=== PATIENT | male | born 1985 | race African-American/Black ===

== ENCOUNTER 2017-10-20 17:06 | Emergency (ER) | payer OTHER ==
[~2017-10-20] VITALS: Ht 175.3 cm; Wt 127.3 kg
[2017-10-20 17:09] VITALS: BP 139/85
[2017-10-20] MEDS ORDERED: MetroNIDAZOLE 500 MG TABLET PO ONE (18:30)
== END 2017-10-20 18:52 | disposition home or self-care (01) ==
LOC: EMS 17:07
DX: A59.9 Trichomoniasis, unspecified (principal); J45.909 Unspecified asthma, uncomplicated; F12.90 Cannabis use, unspecified, uncomplicated; F17.210 Nicotine dependence, cigarettes, uncomplicated
CPT/HCPCS: 99282

== ENCOUNTER 2020-11-06 09:43 | Emergency (ER) | payer OTHER ==
[~2020-11-06] VITALS: Ht 188 cm; Wt 163.6 kg
[~2020-11-06 09:43] MED LIST: ALBU8HFA IH; PRED10 PO
[2020-11-06 09:44] VITALS: BP 157/64
[2020-11-06] MEDS ORDERED: WARF2TAB30 PO (10:14)
[2020-11-06] MEDS ORDERED: MetroNIDAZOLE 500 MG TABLET PO ONE (11:00)
== END 2020-11-06 11:20 | disposition home or self-care (01) ==
LOC: EMS 09:47
DX: A59.9 Trichomoniasis, unspecified (principal); J45.909 Unspecified asthma, uncomplicated; F12.90 Cannabis use, unspecified, uncomplicated; F17.210 Nicotine dependence, cigarettes, uncomplicated; Z79.899 Other long term (current) drug therapy
CPT/HCPCS: 99283